=== PATIENT | male | born 1975 | race American Indian/Alaskan Native ===

== ENCOUNTER 2016-12-26 13:14 | Emergency (ER) | payer OTHER ==
[2016-12-26] MEDS ORDERED: NACL 0.9% 1000 ML 1,000 ML IV ONE ×2 (13:31→16:25)
[2016-12-26] MEDS ORDERED: ZOFRAN IV ONE (13:32)
[2016-12-26 14:11] LABS: Anion Gap 21 mmol/L; Blood Urea Nitrogen 9 mg/dL (9-20); Calcium 9.6 mg/dL (8.4-10.2); Carbon Dioxide 22 mmol/L (22-30); Chloride 105.4 mmol/L (98-107); Glucose 129 mg/dL (75-100); Potassium 4.4 mmol/L (3.6-5.0); Sodium 144 mmol/L (137-145)
[2016-12-26 14:13] LABS: Basophils % (Auto) 0.8 % (0.0-1.8); Hematocrit 43.4 % (35.5-45.6); Hemoglobin 14.3 gm/dl (11.8-15.2); Mean Corpuscular HGB Conc 33 % (32-34); Mean Corpuscular Hemoglobin 28 pg (28-32); Mean Corpuscular Volume 84 fl (84-94); Platelet Count 237 K/mm3 (140-440); Red Blood Count 5.18 M/mm3 (3.65-5.03); Red Cell Distribution Width 15.2 % (13.2-15.2); White Blood Count 10.9 K/mm3 (4.5-11.0)
[2016-12-26] MEDS ORDERED: CATAPRES PO ONE ×3 (14:40→18:10)
[2016-12-26] MEDS ORDERED: DILAUDID IV ONE (16:25)
[2016-12-26] MEDS ORDERED: PEPCID IV ONE (16:25)
[2016-12-26 16:26] LABS: Urine Drugs of Abuse Note Disclamer
[2016-12-26] MEDS ORDERED: NORMODYNE IV ONE ×3 (16:26→22:45)
[2016-12-26 16:30] LABS: Bilirubin,Urine NEG (Negative); Blood,Urine NEG (Negative); Ketones,Urine 20 mg/dL (Negative); Leukocyte Esterase,Urine NEG (Negative); Mucus,Urine FEW /HPF; Nitrite,Urine NEG (Negative); Protein,Urine <15 mg/dL mg/dL (Negative); Urobilinogen,Urine < 2.0 mg/dL (<2.0); WBC,Urine < 1.0 /HPF (0.0-6.0)
[2016-12-26] MEDS ORDERED: NACL ONE (16:43)
[2016-12-26 17:12] LABS: Alanine Aminotransferase 14 units/L (7-56); Albumin 4.8 g/dL (3.9-5); Albumin/Globulin Ratio 1.3 %; Alkaline Phosphatase 64 units/L (35-129); Lipase 34 units/L (13-60); Total Protein 8.5 g/dL (6.3-8.2)
[2016-12-26 17:24] LABS: Bilirubin,Direct < 0.2 mg/dL (0-0.2); Bilirubin,Indirect 0.2 mg/dL
--- NOTE | 2016-12-26 17:50 | Emergency Department Report ---
ED Abdominal Pain HPI - General Chief Complaint: Abdominal Pain Stated Complaint: ABD PAIN/VOMITING Time Seen by Provider: 12/26/16 16:20 Source: patient Mode of arrival: Wheelchair Limitations: No Limitations - History of Present Illness Initial Comments: 41-year-old male with past medical history hypertension presents to the hospital complaints of abdominal pain, nausea, and vomiting with by mouth intolerance since 8 AM. Patient complains of generalized cramps that are moderate to severe in intensity. Pain is constant, with palpation. No relieving factors. Patient denies diarrhea, fever or recent travel, sick contacts, or previous surgeries. Patient drinks alcohol on occasion and denies daily use. Patient has been here. Positive cocaine test in his urine. Patient has been noncompliant with his unknown blood pressure medication for several months. No complaints of chest pain or shortness of breath. Severity scale (0 -10): 0 - Related Data Previous Rx's Medication Instructions Recorded Last Taken Type Ondansetron [Zofran Odt] 4 mg PO Q8HR PRN #20 tab.rapdis 12/26/16 Unknown Rx amLODIPine [Norvasc] 10 mg PO DAILY #30 tab 12/26/16 Unknown Rx traMADol [Ultram 50 MG tab] 50 mg PO Q6HR PRN #20 tablet 12/26/16 Unknown Rx Allergies Allergy/AdvReac Type Severity Reaction Status Date / Time No Known Allergies Allergy Verified 12/26/16 13:21 ED Review of Systems ROS: Stated complaint: ABD PAIN/VOMITING Other details as noted in HPI Comment: All other systems reviewed and negative Other: General: No fever or chills Eyes: No blurry vision or discharge HEENT: No throat pain Neck: No pain Respiratory: No shortness of breath, wheezing, or coughing Cardiovascular: No chest pain, palpitations, or syncope GI: As per HPI Musculoskeletal: No back pain, no joint swelling Neurologic: Denies headache, focal weakness, or focal numbness Psychiatric: Denies hallucinations, suicidal ideation, homicidal ideation Skin: No rash or lesions ED Past Medical Hx - Past Medical History Hx Hypertension: Yes - Surgical History Past Surgical History?: No - Social History Smoking Status: Never Smoker Substance Use Type: None - Medications Home Medications: Home Medications Medication Instructions Recorded Confirmed Last Taken Type Ondansetron [Zofran Odt] 4 mg PO Q8HR PRN #20 tab.rapdis 12/26/16 Unknown Rx amLODIPine [Norvasc] 10 mg PO DAILY #30 tab 12/26/16 Unknown Rx traMADol [Ultram 50 MG tab] 50 mg PO Q6HR PRN #20 tablet 12/26/16 Unknown Rx ED Physical Exam - General Limitations: No Limitations - Other Other exam information: General: No acute distress, Head: Atraumatic, normocephalic Eyes: Normal appearance, pupils equal and reactive to light, extraocular movements intact HEENT: Moist mucous membranes, normal oropharynx Neck: Full range of motion, normal inspection, no midline tenderness CV: Regular rate and rhythm Respiratory: Clear to auscultation, no wheezes, rales, or crackles Abdomen: Soft, nondistended, generalized tenderness greatest in the epigastric and upper abdominal area, normal bowel sounds, no rebound or guarding Extremities: Full range of motion, no deformity Back: Normal inspection, nontender, full range of motion Neurologic: Alert and oriented 3, cranial nerves grossly intact, no motor or sensory deficit Psychiatric: Normal mood and affect ED Course Vital Signs 12/26/16 12/26/16 12/26/16 13:26 13:28 13:41 Temperature 99 F Pulse Rate 70 Respiratory 18 Rate Blood Pressure Blood Pressure 190/120 [Left] O2 Sat by Pulse 97 100 Oximetry 12/26/16 12/26/16 12/26/16 13:45 14:00 14:15 Temperature Pulse Rate Respiratory Rate Blood Pressure 171/100 207/122 207/122 Blood Pressure [Left] O2 Sat by Pulse 100 100 99 Oximetry 12/26/16 12/26/16 12/26/16 14:31 14:45 15:00 Temperature Pulse Rate Respiratory Rate Blood Pressure 189/92 207/122 199/121 Blood Pressure [Left] O2 Sat by Pulse 92 93 100 Oximetry 12/26/16 12/26/16 12/26/16 15:15 15:31 15:45 Temperature Pulse Rate Respiratory Rate Blood Pressure 189/92 189/92 189/92 Blood Pressure [Left] O2 Sat by Pulse 100 100 99 Oximetry 12/26/16 12/26/16 12/26/16 16:00 16:15 16:30 Temperature Pulse Rate Respiratory Rate Blood Pressure 192/96 199/121 206/121 Blood Pressure [Left] O2 Sat by Pulse 100 99 92 Oximetry 0812/26/16 12/26/16 16:33 16:45 17:03 Temperature Pulse Rate Respiratory 16 16 Rate Blood Pressure 202/117 Blood Pressure [Left] O2 Sat by Pulse 92 Oximetry 12/26/16 12/26/16 12/26/16 17:30 17:37 22:04 Temperature 99.1 F Pulse Rate 68 Respiratory Rate Blood Pressure 183/103 183/103 Blood Pressure [Left] O2 Sat by Pulse Oximetry - Reevaluation(s) Reevaluation #1: 12/26/16 17:51 Medications order for pain, blood pressure, nausea/vomiting, and IV fluids initiated 12/26/16 22:11 Pt feeling better after the second round of antibiotics. Tolerating by mouth. BP improved. ED Medical Decision Making - Lab Data Result diagrams: 12/26/16 13:42 12/26/16 13:42 Lab Results 12/26/16 12/26/16 12/26/16 Range/Units 13:42 13:42 15:54 WBC 10.9 (4.5-11.0) K/mm3 RBC 5.18 H (3.65-5.03) M/mm3 Hgb 14.3 (11.8-15.2) gm/dl Hct 43.4 (35.5-45.6) % MCV 84 (84-94) fl MCH 28 (28-32) pg MCHC 33 (32-34) % RDW 15.2 (13.2-15.2) % Plt Count 237 (140-440) K/mm3 Lymph % (Auto) 13.3 L (13.4-35.0) % [place] % (Auto) 3.0 (0.0-7.3) % Eos % (Auto) 0.0 (0.0-4.3) % Baso % (Auto) 0.8 (0.0-1.8) % Lymph # 1.4 (1.2-5.4) K/mm3 [place] # 0.3 (0.0-0.8) K/mm3 Eos # 0.0 (0.0-0.4) K/mm3 Baso # 0.1 (0.0-0.1) K/mm3 Seg Neutrophils % 82.9 H (40.0-70.0) % Seg Neutrophils # 9.0 H (1.8-7.7) K/mm3 Sodium 144 (137-145) mmol/L Potassium 4.4 (3.6-5.0) mmol/L Chloride 105.4 (98-107) mmol/L Carbon Dioxide 22 (22-30) mmol/L Anion Gap 21 mmol/L BUN 9 (9-20) mg/dL Creatinine 1.0 (0.8-1.5) mg/dL Estimated GFR > 60 ml/min BUN/Creatinine Ratio 9.00 % Glucose 129 H (75-100) mg/dL Calcium 9.6 (8.4-10.2) mg/dL Total Bilirubin (0.1-1.2) mg/dL Direct Bilirubin (0-0.2) mg/dL Indirect Bilirubin mg/dL AST (5-40) units/L ALT (7-56) units/L Alkaline Phosphatase (35-129) units/L Total Creatine Kinase (55-170) units/L Total Protein (6.3-8.2) g/dL Albumin (3.9-5) g/dL Albumin/Globulin Ratio % Lipase (13-60) units/L Urine Color Yellow (Yellow) Urine Turbidity Clear (Clear) Urine pH 9.0 H (5.0-7.0) Ur Specific [place] 1.017 (1.003-1.030) Urine Protein <15 mg/dl (Negative) mg/dL Urine Glucose (UA) Neg (Negative) mg/dL Urine Ketones 20 (Negative) mg/dL Urine Blood Neg (Negative) Urine Nitrite Neg (Negative) Urine Bilirubin Neg (Negative) Urine Urobilinogen < 2.0 (<2.0) mg/dL Ur Leukocyte Esterase Neg (Negative) Urine WBC (Auto) < 1.0 (0.0-6.0) /HPF Urine RBC (Auto) 2.0 (0.0-6.0) /HPF U Epithel Cells (Auto) < 1.0 (0-13.0) /HPF Urine Mucus Few /HPF Urine Opiates Screen Urine Methadone Screen Ur Barbiturates Screen Ur Phencyclidine Scrn Ur Amphetamines Screen U Benzodiazepines Scrn Urine Cocaine Screen U Marijuana (THC) Screen Drugs of Abuse Note 12/26/16 12/26/16 12/26/16 Range/Units 16:20 16:20 16:20 WBC (4.5-11.0) K/mm3 RBC (3.65-5.03) M/mm3 Hgb (11.8-15.2) gm/dl Hct (35.5-45.6) % MCV (84-94) fl MCH (28-32) pg MCHC (32-34) % RDW (13.2-15.2) % Plt Count (140-440) K/mm3 Lymph % (Auto) (13.4-35.0) % [place] % (Auto) (0.0-7.3) % Eos % (Auto) (0.0-4.3) % Baso % (Auto) (0.0-1.8) % Lymph # (1.2-5.4) K/mm3 [place] # (0.0-0.8) K/mm3 Eos # (0.0-0.4) K/mm3 Baso # (0.0-0.1) K/mm3 Seg Neutrophils % (40.0-70.0) % Seg Neutrophils # (1.8-7.7) K/mm3 Sodium (137-145) mmol/L Potassium (3.6-5.0) mmol/L Chloride (98-107) mmol/L Carbon Dioxide (22-30) mmol/L Anion Gap mmol/L BUN (9-20) mg/dL Creatinine (0.8-1.5) mg/dL Estimated GFR ml/min BUN/Creatinine Ratio % Glucose (75-100) mg/dL Calcium (8.4-10.2) mg/dL Total Bilirubin 0.40 (0.1-1.2) mg/dL Direct Bilirubin < 0.2 (0-0.2) mg/dL Indirect Bilirubin 0.2 mg/dL AST 29 (5-40) units/L ALT 14 (7-56) units/L Alkaline Phosphatase 64 (35-129) units/L Total Creatine Kinase 911 H (55-170) units/L Total Protein 8.5 H (6.3-8.2) g/dL Albumin 4.8 (3.9-5) g/dL Albumin/Globulin Ratio 1.3 % Lipase 34 (13-60) units/L Urine Color (Yellow) Urine Turbidity (Clear) Urine pH (5.0-7.0) Ur Specific [place] (1.003-1.030) Urine Protein (Negative) mg/dL Urine Glucose (UA) (Negative) mg/dL Urine Ketones (Negative) mg/dL Urine Blood (Negative) Urine Nitrite (Negative) Urine Bilirubin (Negative) Urine Urobilinogen (<2.0) mg/dL Ur Leukocyte Esterase (Negative) Urine WBC (Auto) (0.0-6.0) /HPF Urine RBC (Auto) (0.0-6.0) /HPF U Epithel Cells (Auto) (0-13.0) /HPF Urine Mucus /HPF Urine Opiates Screen Presumptive negative Urine Methadone Screen Presumptive negative Ur Barbiturates Screen Presumptive negative Ur Phencyclidine Scrn Presumptive negative Ur Amphetamines Screen Presumptive negative U Benzodiazepines Scrn Presumptive negative Urine Cocaine Screen Presumptive negative U Marijuana (THC) Screen Presumptive positive Drugs of Abuse Note Disclamer - Radiology Data Radiology results: report reviewed (CT abdomen and pelvis IV contrast only, and small cyst in the left kidney. No acute abnormality) - Medical Decision Making CT abdomen and pelvis did not show any acute abnormality. Labs a urine unremarkable. Patient be started on Norvasc 10 mg for his pressure as symptomatic treatment for vomiting/stomach virus - Differential Diagnosis pancreatitis, gastritis, gastroenteritis, cholecystitis, appendicitis Critical Care Time: No Critical care attestation.: If time is entered above; I have spent that time in minutes in the direct care of this critically ill patient, excluding procedure time. ED Disposition Clinical Impression: Uncontrolled hypertension, Vomiting, Abdominal pain, Noncompliance with medication regimen Disposition: TO HOME OR SELFCARE Is pt being admited?: No Does the pt Need Aspirin: No Condition: Stable Instructions: Hypertension (ED), Acute Nausea and Vomiting (ED), Abdominal Pain (ED) Additional Instructions: Take the medication as prescribed. Return is symptoms worsen as indicated by your discharge instructions. Follow-up with the clinic or doctor provided. Prescriptions: amLODIPine [Norvasc] 10 mg PO DAILY #30 tab Ondansetron [Zofran Odt] 4 mg PO Q8HR PRN #20 tab.rapdis PRN Reason: Nausea And Vomiting traMADol [Ultram 50 MG tab] 50 mg PO Q6HR PRN #20 tablet PRN Reason: Pain Referrals: [facility] [Provider Group] - 3-5 Days ELI SANCHEZ MD [Staff Physician] - 3-5 Days Time of Disposition: 22:14
--- NOTE | 2016-12-26 18:12 | Cat Scan Report ---
FINAL REPORT EXAM: CT ABDOMEN PELVIS W CON HISTORY: n,v, abd pain TECHNIQUE: CT abdomen and pelvis with intravenous contrast with and portal venous and delayed phase imaging. PRIORS: None. FINDINGS: No acute abnormality identified in the lung bases. No focal abnormality identified within the liver parenchyma. The spleen demonstrates normal size and attenuation. No pancreatic abnormalities seen. The kidneys demonstrate symmetric contrast enhancement. No evidence of hydronephrosis. 0.5 centimeter low-density focus noted left kidney probable cyst. The adrenal glands are unremarkable Abdominal aorta is normal in caliber. No pathologically enlarged lymph nodes are identified. No signs of free fluid or free air No evidence of small bowel dilatation. Colon is nondistended. No pericolonic inflammatory change. Urinary bladder is unremarkable. IMPRESSION: Small cyst left kidney No acute abnormality identified abdomen or pelvis
[2016-12-26] MEDS ORDERED: BENTYL IM ONE (18:18)
[2016-12-26] MEDS ORDERED: BENADRYL IV ONE (20:00)
[2016-12-26] MEDS ORDERED: REGLAN IV ONE (20:00)
[2016-12-26 23:21] VITALS: BP 186/108
== END 2016-12-26 23:29 | disposition home or self-care (01) ==
LOC: ED 13:14
DX: I10 Essential (primary) hypertension (principal); R11.2 Nausea with vomiting, unspecified; Z91.14 Patient's other noncompliance with medication regimen
CPT/HCPCS: 36415; 74177; 80048; 80074; 80307; 81001; 82550; 83690; 85025; 96361; 96372; 96374; 96375; 96376; 99284; J0500; J1170; J1200; J2405; J2765; J7030; Q9967